=== PATIENT | male | born 1980 | race Caucasian/White ===

== ENCOUNTER 2024-01-11 12:31 | Emergency (ER) | payer OTHER ==
[2024-01-11] MEDS ORDERED: PANTOPRAZOLE 40 MG/10 ML VIAL ONE (13:11)
[2024-01-11] MEDS ORDERED: FAMOTIDINE 20 MG/2 ML VIAL ONE (13:11)
[2024-01-11] MEDS ORDERED: ONDANSETRON 4 MG/2 ML VIAL ONE (13:11)
[2024-01-11] MEDS ORDERED: HYDROmorphone 1 MG/ML 1 ML SYRINGE ONE ×3 (13:11→15:45)
[2024-01-11] MEDS ORDERED: SODIUM CHLORIDE 0.9% 1,000 ML BAG ONE (13:30)
[2024-01-11] MEDS ORDERED: METOCLOPRAMIDE 5 MG/ML 2 ML VIAL ONE ×2 (13:55→18:26)
[2024-01-11] MEDS ORDERED: SUCRALFATE 1 GM TAB ONE (17:05)
[2024-01-11] MEDS ORDERED: MAG HYDROX/AL HYDROX/SIMETH 30 ML CUP ONE (17:47)
[2024-01-11] MEDS ORDERED: HYOSCYAMINE ELIXIR 250 MCG/10 ML BTL ONE (17:48)
[2024-01-11] MEDS ORDERED: ACET/COD 300 MG/30 MG STARTER PACK 6 TAB BTL PO ONE (18:26)
[2024-01-11] MEDS ORDERED: HYDROmorphone 0.5 MG/0.5 ML SYRINGE ONE (18:26)
[2024-01-11] MEDS ORDERED: ONDANSETRON 4 MG ODT STARTER PACK 2 TAB BTL ONE (18:27)
--- NOTE | 2024-02-11 14:06 | CT ---
TATUM RENNER : 1980 EXAM: CT Abd/Pelvis w/o Contrast DATE: 01/11/2024 08:55 INDICATION: Reason for study: PAIN, NAUSEA, vomiting COMPARISON: None, please note PACS downtime occurred during the radiologist interpretation of these i mages with limited priors/reports.. TECHNIQUE: CT Abd/Pelvis w/o Contrast, with axial imaging and sagittal and coronal reformats following the admin istration of 100 cc of Omnipaque 350 IV contrast material.. One or more CT dose reduction strategies were utilized during this examination. Total DLP administered was 1216.1 mGycm. FINDINGS: LOWER CHEST: Unremarkable ABDOMEN LIVER: Unremarkable GALLBLADDER AND BILE DUCTS: Unremarkable. PANCREAS: Unremarkable. SPLEEN: Unremarkable. ADRENAL GLANDS: Unremarkable. KIDNEYS AND URETERS: No evidence of hydronephrosis or renal calculus. The ureters are unremarkable. PELVIS BLADDER: Unremarkable REPRODUCTIVE: Unremarkable. ABDOMEN & PELVIS STOMACH AND BOWEL: Gastric antrum thickening up to 16 mm with hyperemia. Stomach and duodenum are unr emarkable. No evidence of bowel obstruction. PERITONEUM: No evidence of pneumoperitoneum or free fluid. VASCULATURE: No evidence of aortic aneurysm. MUSCULOSKELETAL: No acute osseous abnormalities LYMPH NODES: No gross evidence for lymphadenopathy. SOFT TISSUE/ABDOMINAL WALL: Fat-containing umbilical hernia. IMPRESSION: Gastric antrum wall thickening correlate for gastritis. No evidence for bowel obstruction. No additio nal acute abdominal process.
== END 2024-01-11 19:00 | disposition home or self-care (01) ==
LOC: EC 12:31
DX: K29.00 Acute gastritis without bleeding (principal)
CPT/HCPCS: 74177; 93005; 96374; 96375; 96376; 99284